=== PATIENT | female | born 1985 | race Caucasian/White ===

== ENCOUNTER 2021-05-11 15:40 | Emergency (ER) | payer BC ==
[~2021-05-11] VITALS: Ht 162.6 cm; Wt 68.0 kg
[2021-05-11] MEDS ORDERED: XANAX0.25 MG PO (15:53)
--- NOTE | 2021-05-12 21:21 | EKG ---
[facility] [address] [facility] [place], [place] [address] Signed Normal sinus rhythm Cannot rule out Anterior infarct , age undetermined Abnormal ECG No previous ECGs available Confirmed by CHINTAN MENA DO ([id number]) on 05/12/2021 9:21:27 PM Electronically Signed By: CHINTAN MENA DO 05/12/212120 PATIENT NAME: CLEM FOSTER Electrocardiogram DATE OF : 85 PHYSICIAN: CHINTAN MENA DO REPORT #: [id number] REPORT IS CONFIDENTIAL AND NOT TO BE RELEASED WITHOUT AUTHORIZATION
== END 2021-05-11 17:34 | disposition home or self-care (01) ==
LOC: ED 15:40
DX: K21.9 Gastro-esophageal reflux disease without esophagitis (principal)
CPT/HCPCS: 71045; 80053; 83735; 84484; 85025; 93005; 93010; 99285-25